=== PATIENT | male | born 2000 | race Two or more races ===

== ENCOUNTER 2024-02-22 04:10 | Day surgery (SDC) | payer BC ==
[2024-02-22] MEDS ORDERED: ONDANSETRON 4 MG/2 ML VIAL ONE (09:49)
[2024-02-22] MEDS ORDERED: DEXAMETHASONE SOD PHOSPHATE 4 MG/1 ML VIAL ONE (09:49)
[2024-02-22] MEDS ORDERED: FENTANYL CITRATE/PF 50 MCG/ML VIAL ONE (09:49)
[2024-02-22] MEDS ORDERED: LIDOCAINE HCL/PF 2% SDV 5ML VIAL ONE (09:49)
[2024-02-22] MEDS ORDERED: PROPOFOL 60 ML ONE (09:50)
[2024-02-22] MEDS ORDERED: MIDAZOLAM HCL 2 MG/2 ML SINGLE DOSE VIAL ONE (09:50)
[2024-02-22] MEDS: ceFAZolin SODIUM 1 GM VIAL IVPB ONE (10:53)
[2024-02-22] MEDS ORDERED: BACITRACIN ZINC 15 GM TUBE TOPICAL OINTMENT ONE (11:18)
[2024-02-22] MEDS: BACITRACIN ZINC 15 GM TUBE TOPICAL OINTMENT TP ONE (11:19)
[2024-02-22] MEDS: LIDOCAINE 1%/EPI 1:100000 (20 ML MULTI DOSE VIAL) INF ONE (11:22)
[2024-02-22] MEDS ORDERED: oxyCODONE HCL 5 MG TABLET PO PRN (11:56)
[2024-02-22] MEDS ORDERED: ONDANSETRON 4 MG/2 ML VIAL IVPUSH PRN (11:56)
[2024-02-22] MEDS ORDERED: LACTATED RINGERS SOLUTION 1,000 ML IV SCH (12:00)
[2024-02-22 13:03] VITALS: RESP 20
[2024-02-22] MEDS ORDERED: IBUPROFEN 600 MG TABLET (FP) PO ONE (13:12)
[2024-02-22] MEDS: IBUPROFEN 600 MG TABLET (FP) PO ONE (13:16)
[2024-02-22] MEDS: ACETAMINOPHEN 325 MG TABLET (FP) ONE (13:30)
[2024-02-22 14:01] VITALS: BP 135/71; PULSE 50; TEMP 97.7
== END 2024-02-22 14:02 | disposition home or self-care (01) ==
LOC: JASU-SURG 04:10
PROVIDERS: ATTEND Otolaryngology
PROC: 0CB1XZX Excision of Lower Lip, External Approach, Diagnostic (ICD-10-PCS; principal; 2024-02-22 11:00)
DX: K13.79 Other lesions of oral mucosa (principal)
CPT/HCPCS: 88304-TC; 94760